=== PATIENT | male | born 1975 | race Caucasian/White ===

== ENCOUNTER 2023-03-18 13:34 | Observation (INO) | payer MEDICAID, SELFPAY ==
[2023-03-18] VITALS (11 sets, daily range): BP systolic 94–113; BP diastolic 61–73; PULSE 80–111; RESP 16–20; TEMP 36.2–36.4; O2SAT 100; BMI 17.7
--- NOTE | ~2023-03-18 | XR_ITS ---
EXAMINATION: XR chest 1V Exam Date/Time: 03/18/2023 16:07 CDT HISTORY: cough, dyspnea Comparison: CT abdomen pelvis, same date. RESULT: Lines, tubes, and devices: None. Lungs and pleura: Clear. Cardiomediastinal silhouette: Normal. Other: No acute osseous or upper abdominal finding. IMPRESSION: No acute cardiopulmonary process. Reviewed, dictated and finalized at location K.
--- NOTE | ~2023-03-18 | NM_ITS ---
Nuclear Medicine Procedure: Perfusion/Ventilation Lung Scan History: Pulmonary embolus. Interpretation: Following inhalation of 17.5 mCi. of Xenon-133, there is symmetrical Xenon entry bila terally with no evidence for retention on the delayed washout images. 4.8 mCi. of Technetium-labeled microspheres were injected intravenously and multiple images obtained in 8 projections revealed normal perfusion to the lungs without any segmental or subsegmental defects . Impression: Low probability perfusion/ventilation lung scan. Reviewed, dictated and finalized at location M. Impression: Low probability perfusion/ventilation lung scan.
--- NOTE | ~2023-03-18 | XR_ITS ---
EXAMINATION: XR barium swallow DATE: 03/20/2023 13:06 INDICATION: Dysphagia. TECHNIQUE: The patient drank thick barium, gas-producing crystals, and thin barium. Fluoroscopy of th e hypopharynx and esophagus was performed. Fluoroscopy exposure time was 0.7 minutes. The total numbe r of images was 268. The dose-area product was 0.5 Gy-cm^2. COMPARISON: Chest CT 03/19/2023 FINDINGS: There is no mass or stricture of the esophagus. Esophageal motility is normal. There is no hiatal hernia. There was no gastroesophageal reflux with provocative maneuvers. IMPRESSION: 1. Normal esophagram. Reviewed, dictated and finalized at location A. IMPRESSION: 1. Normal esophagram.
--- NOTE | ~2023-03-18 | CT_ITS ---
EXAMINATION: CT abdomen pelvis w con DATE: 03/18/2023 16:10 INDICATION: Left abdominal pain TECHNIQUE: Computed tomography (CT) of the abdomen and pelvis was performed with 100 mL Omnipaque-350 intravenous contrast. Automated exposure control and iterative reconstruction technique were employe d. The dose-length product was 196.88 mGy-cm. COMPARISON: None FINDINGS: Lung bases are clear. No pleural effusion. Heart size is normal. Small pericardial effusion a millime ters cyst in the left hepatic lobe. Gallbladder, pancreas and bilateral adrenal glands are normal. Sp lenomegaly measuring 14.8 x 13.7 x 9.6 cm. There is enlargement of the bilateral kidneys with heterog eneous pattern of enhancement with numerous wedge shaped regions of decreased parenchymal enhancement in both kidneys suggestive of pyelonephritis. Diffuse mild wall thickening of the incompletely diste nded bladder with increased mucosal enhancement suspicious for cystitis. No bowel obstruction. There is diffuse mild body wall and mesenteric edema and minimal amount of ascites in the pelvis. Flattenin g of the inferior vena cava suggesting hypovolemia. No abscess or free intraperitoneal gas. No pathol ogically enlarged abdominal or pelvic lymphadenopathy. Mild lumbar levocurvature. IMPRESSION: 1. Cystitis and bilateral pyelonephritis. 2. Nonspecific small pericardial effusion, mesenteric and body wall edema and minimal ascites in the deep pelvis despite flattening of the inferior vena cava consistent with hypovolemia and suggesting p ossibility of sepsis. Reviewed, dictated and finalized at location A. IMPRESSION: 1. Cystitis and bilateral pyelonephritis. 2. Nonspecific small pericardial effusion, mesenteric and body wall edema and m inimal ascites in the deep pelvis despite flattening of the inferior vena cava consistent with hypovolemia and suggesting possibility of sepsis.
--- NOTE | ~2023-03-18 | US_ITS ---
EXAMINATION: US venous doppler [facility] DATE: 03/19/2023 11:45 INDICATION: Shortness of breath TECHNIQUE: [place] scale images without and with compression and Doppler images of the bilateral lower e xtremity veins were obtained. COMPARISON: None FINDINGS: The right common femoral vein, profunda femoral vein, femoral vein, popliteal vein, peroneal trunk, p osterior tibial veins, and greater saphenous vein are patent. The left common femoral vein, profunda femoral vein, femoral vein, popliteal vein, peroneal trunk, po sterior tibial veins, and greater saphenous vein are patent. IMPRESSION: 1. Patent bilateral lower extremity veins. No evidence of deep venous thrombosis. Reviewed, dictated and finalized at location L. IMPRESSION: 1. Patent bilateral lower extremity veins. No evidence of deep venous thrombosi s.
--- NOTE | ~2023-03-18 | CT_ITS ---
EXAMINATION: CTA chest PE protocol DATE: 03/19/2023 11:50 INDICATION: Shortness of breath TECHNIQUE: Computed tomography angiography (CTA) of the chest was performed with 100 mL Omnipaque-350 intravenous contrast timed to evaluate the pulmonary arteries. Coronal maximum intensity projection 3D-reconstructions were created by the technologist. The dose-length product (DLP) was 228.82 mGy-cm. Automated exposure control and iterative reconstruction technique were employed. COMPARISON: None FINDINGS: The pulmonary arteries are well-opacified. No pulmonary embolism is identified. There is e mphysema of the lung apices. No pleural effusion or pneumothorax. The lungs are free of acute opaciti es. No pathologically enlarged thoracic lymph nodes are identified. The heart size is normal. Splenom egaly is noted. IMPRESSION: 1. No pulmonary embolism or acute cardiopulmonary abnormality. Reviewed, dictated and finalized at location L.
--- NOTE | ~2023-03-18 | XR_ITS ---
EXAMINATION: XR barium swallow modified DATE: 03/20/2023 13:03 INDICATION: Dysphagia. TECHNIQUE: The patient was given barium-containing material of multiple consistencies to swallow by camron waller speech pathologist while I performed fluoroscopy. Dose-area product was 0.5 Gy-cm2. 1 minute fluoroscopy time FINDINGS: Oral Stage: Within functional limits Pharyngeal Phase: Within functional limits Cervical/Esophageal Stage: Within functional limits IMPRESSION: Modified esophagram findings as above. Please refer to the speech therapy report [facility]. Reviewed, dictated and finalized at Location A. Reviewed, dictated and finalized at location A. IMPRESSION: Modified esophagram findings as above. Please refer to the speech t herapy report for specific recommendations.
[2023-03-18 14:16] LABS: Hematocrit 39.5 % (42.0-52.0); Hemoglobin 13.2 g/dL (14.0-18.0); Mean Corpuscular HGB Conc 33.4 g/dl (32-36); Mean Corpuscular Hemoglobin 28.3 pg (26-34); Mean Corpuscular Volume 84.6 fl (80-100); Mean Platelet Volume 11.3 fl (7.4-10.4); Platelet Count Result 226 k/mm3 (150-375); Red Blood Count 4.67 M/mm3 (4.6-6.20); Red Cell Distribution Width 13.3 % (11.5-14.5); White Blood Count 12.2 K/mm3 (4.5-10.0)
[2023-03-18 14:26] LABS: Alanine Aminotransferase 49 U/L (6-50); Albumin Level 3.4 g/dL (3.5-5.1); Alkaline Phosphatase 106 U/L (38-126); Anion Gap 12 mmol/L (8-16); Aspartate Amino Transferase 113 U/L (17-59); Bilirubin,Total 0.8 mg/dL (0.2-1.3); Blood Urea Nitrogen 41 mg/dL (9-20); Calcium 8.7 mg/dL (8.4-10.2); Carbon Dioxide 20 mmol/L (22-30); Chloride 96 mmol/L (98-107); Estimated CRCL calculation 36 ml/min; Estimated Glomerular Filt Rate 44; Glucose 109 mg/dL (65-110); Lipase 419 U/L (23-300); Potassium 4.1 mmol/L (3.4-5.0); Sodium 128 mmol/L (137-145)
[2023-03-18 14:39] LABS: Band Neutrophils Percent 10 % (0-6); Lymphocytes Absolute Manual 0.61 K/mm3 (1.1-4.5); Monocytes Absolute Manual 0.48 K/mm3 (0.1-0.90); Monocytes Percent Manual 4 % (3-9); Neutrophils Percent Manual 81 % (46-73); Platelet Estimate Adequate (Adequate); Total Cells Counted 100
[2023-03-18 14:40] LABS: Schistocytes None Seen (NORMAL)
--- NOTE | 2023-03-18 15:53 | ECG_ITS ---
Measurements Intervals [place] Rate: 81 P: 80 NE: 149 QRS: 84 QRSD: 92 T: 68 QT: 373 QTc: 434 Interpretive Statements SINUS RHYTHM BORDERLINE T WAVE ABNORMALITY- ANTERIOR LEADS BASELINE ARTIFACT- I, II, III, AVL BORDERLINE ECG NO PREVIOUS ECG AVAILABLE FOR COMPARISON Electronically Signed On 03-18-2023 20:10:30 CDT by Aureliano Vega D.O.
--- NOTE | 2023-03-18 15:55 | ED.NAVMDI ---
HPI - Nausea/Vomiting/Diarrhea General Chief complaint: Nausea/Vomiting/Diarrhea <Benita Paulino PA-C - Last Filed: 03/18/23 19:28> Stated complaint: nausea, fevers x 1 month <Benita Paulino PA-C - Last Filed: 03/18/23 19:28> Time Seen by Provider: 03/18/23 14:26 <Benita Paulino PA-C - Last Filed: 03/18/23 19:28> History of Present Illness HPI Narrative: 47-year-old male with a history of HIV reports for evaluation for diarrhea, generalized weakness, body aches. Patient states symptoms started a month ago when he began having multiple episodes of diarrhea daily. States he had a 4-day stretch of fevers and laid in bed the entire time, states his high fever at that time was 104. Patient states he was feeling better until a few days ago when he began feeling ill again with generalized body aches, weakness and diarrhea. He states the diarrhea has never stopped. He denies abdominal pain, nausea or vomiting, chest pain. He is reporting shortness of breath and a productive cough with white frothy sputum. He denies hemoptysis, melena or hematochezia. Patient states he did have a 101 temp 2 days ago, but denies fever since. He also reports dysphagia for the past month and a 45 pound weight loss. Patient states he feels 100, however is unable to eat because when he eats, feels like the food does not go down fully and his stomach feels small. He denies odynophagia, sore throat, otalgia, dental pain, hematuria or dysuria, drug or alcohol use. Patient report smoking a couple cigarettes per day. He is not currently taking any antivirals for HIV because he moved here and is waiting to get into a PCP. He has not taken antivirals for 2 months. Denies recent antibiotic use, surgeries or hospitalizations, camping or travel. <Benita Paulino PA-C - Last Filed: 03/18/23 19:28> Related Data Allergies/Adverse reactions: Allergies Allergy/AdvReac Type Severity Reaction Status Date / Time bupropion [From Wellbutrin] Allergy Unknown Verified 03/18/23 17:21 clindamycin Allergy Hives Verified 03/18/23 17:21 Penicillins Allergy Swelling Verified 03/18/23 17:20 of Lip/Tongue/Throat <Benita Paulino PA-C - Last Filed: 03/18/23 19:28> Review of Systems Review of Systems: CONSTITUTIONAL: See HPI EYES: Denies visual changes, redness, or discharge. ENT see HPI CARDIOVASCULAR: Denies chest pain, palpitations, or edema. RESPIRATORY: Denies cough or dyspnea. GASTROINTESTINAL: See HPI GENITOURINARY: Denies dysuria or hematuria. SKIN: Denies rash or itching. MUSCULOSKELETAL: Denies back pain, joint pain, or myalgia. NEUROLOGIC: See HPI PSYCHIATRIC: Denies anxiety or depression. <Benita Paulino PA-C - Last Filed: 03/18/23 19:28> Exam Narrative: GENERAL: Cachectic and ill-appearing. No acute distress HEAD: Normocephalic EYES: PERRLA ENT: Nares clear. Mucous membranes moist. Oropharynx without tonsillar hypertrophy exudate or other lesions. NECK: Supple. No nuchal rigidity. CHEST: No respiratory distress. Clear to auscultation, no adventitious breath sounds. HEART: Regular rate and rhythm. No murmur heard. Normal peripheral pulses. ABDOMEN: Normal active bowel sounds. Abdomen soft with tenderness and guarding in the left lower and left upper quadrants. No overlying skin changes. No rebound or rigidity. No CVA tenderness. EXTREMITIES: Normal range of motion. No edema. Negative Homans. SKIN: Warm, dry, no rash. NEURO: No focal deficits. Alert and oriented x3. PSYCH: Normal mood and affect. <Benita Paulino PA-C - Last Filed: 03/18/23 19:28> Course SUPERVISOR [employer]/PA Physician Supervision I personally evaluated and examined the patient in conjunction with the APC (MANA Paulino) and agree with the assessment, treatment plan and disposition of the patient as recorded by the APC. <Roby Acevedo MD - Last Filed: 03/18/23 20:31> Vital Signs Vital signs: Vital Signs Temperature
[2023-03-18 16:05] LABS: Appearance Urine Turbid (Clear); Bacteria Urine 1+ /hpf; Bilirubin Urine Negative (Negative); Color Urine Yellow (Yellow); Glucose Urine UA Negative (Negative); Hyaline Casts Urine Present /lpf; Ketones Urine Negative (Negative); Leukocyte Esterase Ur 2+ LEU/UL (Negative); Nitrate Urine Negative (Negative); Protein Urine 1+ mg/dL (Negative); RBC Urine 0-2 /hpf (0-2); Specific Grav Ur 1.012 (1.001-1.035); Squamous Epithelial Cell Urine None seen /hpf (Few); Urobilinogen Urine 0.2 mg/dL (<2.0); WBC Clumps Urine Present /HPF; WBC Urine >100 /hpf
[2023-03-18 16:06] LABS: Add Urine Microscopic? YES
[2023-03-18] MEDS: SODIUM CHLORIDE 0.9% IV 1,000 ML 999 ML IV CONT ×3 (16:18→18:55)
[2023-03-18 17:05] LABS: INR 1.1; Prothrombin Time 14.6 Seconds (11.1-14.7)
[2023-03-18 17:06] LABS: Lactic Acid Reflex 1.3 mmol/L (0.7-2.0); Partial Thromboplastin Time 29.9 SECONDS (22.3-36.8); Phosphorus 5.1 mg/dL (2.5-4.5)
[2023-03-18 17:16] LABS: NT Pro B Type Natriuretic Pept 144 pg/mL (19.9-100)
[2023-03-18 17:18] LABS: D Dimer 1.49 ug/mL (<0.48); Troponin I < 0.012 ng/mL (0.000-0.034)
[2023-03-18 17:19] LABS: Strep Group A RT-PCR NOT DETECTED (Negative)
[2023-03-18 17:29] LABS: Influenza A QL RT-PCR Negative (Negative); Influenza B QL RT-PCR Negative (Negative); SARS-CoV-2 RNA PCR Negative (Negative)
--- NOTE | 2023-03-18 19:15 | PC.NURSE ---
Assumed care of pt from DM Cruz at this time.
[2023-03-18] MEDS: VANCOMYCIN 1,250 MG/NS 250 ML BAG 166.67 MG IVPB (19:17)
[2023-03-18 19:44] LABS: Vancomycin Trough < 5.0 ug/mL (10.0-20.0)
--- NOTE | 2023-03-18 20:29 | ADMGEN ---
This patient, Chapito Bernard, was admitted to Medical Room 252-. Patient/family oriented to hospital policies and general routines including ID bracelet, bed and alarms, visiting hours, pain management, procedures, bathroom and other care routines, personal items, smoking policy, room service/diet, and visiting hours. Information on how to activate the Rapid Response Team has been discussed. Patient/Family are encouraged to report perceived risks to care and to ask questions if they do not understand what they are told or what they should do.
--- NOTE | 2023-03-18 20:52 | P.HP_ITS ---
03/18/23 16:00 03/18/23 14:30 03/18/23 20:00 Temperature Pulse Rate 105 H 108 H 80 Respiratory Rate 16 20 16 Blood Pressure 94/66 L 98/71 L 103/63 Pulse Oximetry 100 100 100 Oxygen Delivery 03/18/23 20:13 Temperature 97.6 F Pulse Rate 85 Respiratory Rate 17 Blood Pressure 100/61 Pulse Oximetry 100 Oxygen Delivery Exam Narrative: Patient is laying in bed Const: General: comfortable, no acute distress, well developed, alert, awake, ill appearing chronically, cachectic and other ( bilateral temporal muscle waste) Nutritional Appearance: cachectic Orientation/consciousness: patient oriented x3 HENMT: Head: normal to inspection, normocephalic and atraumatic Ears: hearing grossly normal bilaterally Face/Nose/Sinus: normal facial exam Face and sinus: normal facial exam Eyes: General: appearance normal, both eyes and all related structures Pupils: Equal, round and reactive pupils present EOM: EOMs intact bilaterally Neck: Neck: full ROM, no lymphadenopathy and no JVD Thyroid: thyroid normal Lymphatic: no lymphadenopathy noted Resp: Effort & Inspection: normal respiratory effort and able to speak in complete sentences Auscultation: clear to auscultation bilaterally Cardio: Jugular venous distension: no JVD Rate: regular rate Rhythm: regular rhythm Heart sounds: S1 normal heart sound present and S2 normal heart sound present GI: GI Palp: Yes Soft to palpation and Yes No hepatosplenomegaly present : General: Yes deferred Skin: Rashes: no rashes Wounds: no wounds Neuro: General: patient oriented x3 and CN's II-XI intact bilaterally Cranial nerves: Yes CN's II-XII intact bilaterally and Yes Equal, round and reactive pupils present Cognition (Neuro): normal cognition Speech: normal speech Gait exam (Neuro): Normal gait present Motor exam (neuro): 5/5 motor strength present throughout Extrem: General: normal to inspection, full ROM, no joint enlargement and no pedal edema H&P: Results Labs Labs: Short CBC 03/18/23 Range/Units 14:02 WBC 12.2 H (4.5-10.0) K/mm3 Hgb 13.2 L (14.0-18.0) g/dL Hct 39.5 L (42.0-52.0) % Plt Count 226 (150-375) k/mm3 BMP 03/18/23 14:02 Sodium 128 L Potassium 4.1 Chloride 96 L Carbon Dioxide 20 L BUN 41 H Creatinine 1.70 H Glucose 109 Calcium 8.7 Cardiac Enzymes 03/18/23 Range/Units 16:45 Troponin I < 0.012 (0.000-0.034) ng/mL Liver Function 03/18/23 Range/Units 14:02 Total Bilirubin 0.8 (0.2-1.3) mg/dL AST 113 H (17-59) U/L ALT 49 (6-50) U/L Alkaline Phosphatase 106 (38-126) U/L Albumin 3.4 L (3.5-5.1) g/dL Urine 03/18/23 Range/Units 15:29 Urine Color Yellow (Yellow) Urine Appearance Turbid H (Clear) Urine pH 5.0 (5.0-9.0) Ur Specific [place] 1.012 (1.001-1.035)
--- NOTE | 2023-03-18 20:52 | PM.IMHP ---
H&P: HPI History of Present Illness Date/Time: 03/18/23 20:52 Chief Complaint: fevers Narrative: This is a 47-year-old male with past medical history significant for HIV/ aids, patient not on HAART. used to be on heart however recently relocated to the area and has lost his prior care has been of [facility] for the last 4 months or so comes to the emergency room due to diarrhea, generalized malaise, fevers, chills, cough productive of clear sputum, weight loss of roughly 45 lb over the last month or so, dysphagia however no oral thrush, no odynophagia, he no nausea, no vomiting, patient is currently trying to establish [facility]. Preliminary workup was significant for hemoglobin of 13, bands 10 %, neutrophils 80%, sodium 128, chloride 96 bicarb 20 BUN 40 creatinine 1.7 urinalysis was significant for WBC clumps present. patient tested negative for influenza type A influenza type B COVID-19 A chest x-ray and a CT of abdomen and pelvis were reported as: EXAMINATION: CT abdomen pelvis w con DATE: 03/18/2023 16:10 INDICATION: Left abdominal pain TECHNIQUE: Computed tomography (CT) of the abdomen and pelvis was performed with 100 mL Omnipaque-350 intravenous contrast. Automated exposure control and iterative reconstruction technique were employed. The dose-length product was 196.88 mGy-cm. COMPARISON: None FINDINGS: Lung bases are clear. No pleural effusion. Heart size is normal. Small pericardial effusion a millimeters cyst in the left hepatic lobe. Gallbladder, pancreas and bilateral adrenal glands are normal. Splenomegaly measuring 14.8 x 13.7 x 9.6 cm. There is enlargement of the bilateral kidneys with heterogeneous pattern of enhancement with numerous wedge shaped regions of decreased parenchymal enhancement in both kidneys suggestive of pyelonephritis. Diffuse mild wall thickening of the incompletely distended bladder with increased mucosal enhancement suspicious for cystitis. No bowel obstruction. There is diffuse mild body wall and mesenteric edema and minimal amount of ascites in the pelvis. Flattening of the inferior vena cava suggesting hypovolemia. No abscess or free intraperitoneal gas. No pathologically enlarged abdominal or pelvic lymphadenopathy. Mild lumbar levocurvature. IMPRESSION: 1. Cystitis and bilateral pyelonephritis. 2. Nonspecific small pericardial effusion, mesenteric and body wall edema and minimal ascites in the deep pelvis despite flattening of the inferior vena cava consistent with hypovolemia and suggesting possibility of sepsis. EXAMINATION:? XR chest 1V Exam Date/Time:? 03/18/2023 16:07 CDT HISTORY: cough, dyspnea ? Comparison:? CT abdomen pelvis, same date. RESULT: Lines, tubes, and devices:? None. Lungs and pleura:? Clear. Cardiomediastinal silhouette:? Normal. Other:? No acute osseous or upper abdominal finding. ? IMPRESSION: No acute cardiopulmonary process. ekg Rate 81 [place] 149 QRSd 92 QT 373 QTc 434 --[place]-- P 80 QRS 84 T 68 SINUS RHYTHM BORDERLINE T WAVE ABNORMALITY- ANTERIOR LEADS BASELINE ARTIFACT- I, II, III, AVL BORDERLINE ECG NO PREVIOUS ECG AVAILABLE FOR COMPARISON Electronically Signed On 03-18-2023 20:10:30 CDT by Aureliano Review of Systems Review of Systems: diarrhea, dysphagia, weight loss, fevers, chills, generalized malaise. Intermittent cough productive of clear phlegm. Constitutional: Constitutional: Reports excessive sweating, Reports fever(s), Reports malaise, Reports night sweats, Reports poor appetite, Reports weakness and Reports weight loss Eyes: Eyes: Denies change in vision ENT: Reports dysphagia, Reports dizziness, Denies odynophagia and Denies sore throat Cardiovascular: Cardiovascular: Denies chest pain, Denies leg ulcers, Denies leg edema, Reports lightheadedness, Denies radiating jaw, neck or arm pain, Denies palpitations and Denies dyspnea Respiratory: Respiratory: Denies change in phlegm color, Denies chest congestion, Reports cough, D
[2023-03-18] MEDS: SODIUM CHLORIDE 0.9% IV 1,000 ML 125 ML IV CONT (21:00)
[2023-03-19] VITALS (10 sets, daily range): BP systolic 90–95; BP diastolic 51–53; PULSE 59–99; RESP 16–18; TEMP 36.4–36.6; O2SAT 99–100; BMI 17.7
[2023-03-19] MEDS: traZODone HCL 50 MG TABLET PO (00:42)
[2023-03-19 02:10] LABS: Basophils Percent Auto 0.2 % (0.2-1.2); Eosinophils Percent Auto 0.7 % (0-4.4); Hematocrit 29.7 % (42.0-52.0); Hemoglobin 10.1 g/dL (14.0-18.0); Immature Granulocyte Absolute 0.06 K/mm3 (0.00-0.031); Lymphocytes Absolute Auto 0.32 K/mm3 (0.9-3.2); Lymphocytes Percent Auto 5.2 % (18.3-44.2); Mean Corpuscular Hemoglobin 28.7 pg (26-34); Mean Corpuscular Volume 84.4 fl (80-100); Monocytes Absolute Auto 0.4 K/mm3 (0.1-0.6); Monocytes Percent Auto 6.2 % (2.6-8.5); Neutrophils Absolute Auto 5.3 K/mm3 (1.3-6.7); Neutrophils Percent Auto 86.7 % (45.5-73.1); Platelet Count Result 174 k/mm3 (150-375); Red Blood Count 3.52 M/mm3 (4.6-6.20); Red Cell Distribution Width 13.6 % (11.5-14.5); White Blood Count 6.1 K/mm3 (4.5-10.0)
[2023-03-19 02:22] LABS: Anion Gap 7 mmol/L (8-16); Blood Urea Nitrogen 35 mg/dL (9-20); Carbon Dioxide 17 mmol/L (22-30); Chloride 103 mmol/L (98-107); Estimated CRCL calculation 46 ml/min; Estimated Glomerular Filt Rate 55; Glucose 99 mg/dL (65-110); Lactic Acid Reflex 0.7 mmol/L (0.7-2.0); Magnesium 2.1 mg/dL (1.6-2.3); Potassium 3.7 mmol/L (3.4-5.0); Sodium 127 mmol/L (137-145)
[2023-03-19 04:53] LABS: Toxigenic C. Diff NEGATIVE (NEGATIVE)
[2023-03-19] MEDS: SODIUM CHLORIDE 0.9% IV 1,000 ML 125 ML IV CONT ×2 (05:07→17:28)
[2023-03-19] MEDS: SULFAMETHOXAZOLE/TRIMETHOPRIM 800/160 MG DS TABLET 1 TAB PO (09:18)
[2023-03-19] MEDS: ACETAMINOPHEN 325 MG TABLET 650 MG PO (09:22)
--- NOTE | 2023-03-19 11:57 | PM.IMPN ---
Progress Note: A&P Assessment and Plan (1) Sepsis: Qualifiers: Acute renal failure type: unspecified Sepsis acute organ dysfunction status: with acute organ dysfunction Sepsis type: sepsis due to unspecified organism Severe sepsis acute organ dysfunction type: acute renal failure Severe sepsis shock status: without septic shock Qualified Code(s): A41.9 - Sepsis, unspecified organism; R65.20 - Severe sepsis without septic shock; N17.9 - Acute kidney failure, unspecified Code(s): A41.9 - Sepsis, unspecified organism Status: Acute Assessment and Plan: Patient still appears mildly or borderline hypotensive after aggressive bolus and IV antibiotics, no septic shock identified at this time. (2) Pyelonephritis: Code(s): N12 - Tubulo-interstitial nephritis, not specified as acute or chronic Status: Acute Assessment and Plan: Urinary tract infection suggested by UA as well as radiographic findings of bilateral pyelonephritis. Nonobstructing. Escalated antibiotics to Bactrim DS 2 tabs b.i.d. after discussion with ID Pharmacist. (3) TOBI (acute kidney injury): Code(s): N17.9 - Acute kidney failure, unspecified Status: Acute Assessment and Plan: Suspected to be related to dehydration and sepsis (4) HIV disease: Code(s): B20 - Human immunodeficiency virus [HIV] disease Status: Acute Assessment and Plan: not currently receiving treatment CD4 count has been collected waiting results (5) Dysphagia: Code(s): R13.10 - Dysphagia, unspecified Status: Acute Assessment and Plan: poorly described difficulty swallowing food per patient. GI was consulted and ordered barium swallow, possible EGD (6) D-dimer, elevated: Code(s): R79.89 - Other specified abnormal findings of blood chemistry Status: Acute Assessment and Plan: D-dimer elevated the ER workup, V/Q scan negative. CTA also negative, bilateral lower extremity Dopplers negative (7) Diarrhea: Qualifiers: Diarrhea type: unspecified type Qualified Code(s): R19.7 - Diarrhea, unspecified Code(s): R19.7 - Diarrhea, unspecified Status: Acute Assessment and Plan: chronic and ongoing stool testing negative for C diff and other tests are still pending (8) Hyponatremia: Code(s): E87.1 - Hypo-osmolality and hyponatremia Status: Acute Assessment and Plan: mild stable, continue to monitor daily labs Time Spent With Patient Time with patient: Greater than 35 minutes Subjective Date/time seen: 03/19/23 11:57 Interval history: Patient was admitted due to pyelonephritis on imaging with UA highly suggestive UTI. He was started on ceftriaxone and vancomycin due to HIV positive status not well controlled and not currently receiving treatment. Patient is a very poor historian and seemed to insinuated that it was because he was crying for the last 24 hours that he knew he needed to come to the hospital. Patient complained of pain all over. Now he states the pain is still present but in the next sentence when asked where he has pain, he states he has no pain anywhere. Patient reports that he has had multiple episodes of diarrhea ongoing for a long period of time. I asked if patient needed anything else and he said not for you, but for the nurse and subsequently pushed the call light and complained that his lips were chapped. Review of Systems Review of Systems: poor historian Exam Narrative: GENERAL: generally unwell appearing, thin and emaciated HEENT: Pupils are equally round and briskly reactive to light. Extraocular muscles are intact. Oral mucous membranes no thrush NECK: The patient has no noted JVD. No adenopathy is appreciated. CHEST/LUNGS: Lungs are clear bilaterally without rhonchi, rales, or wheezes. There is no subcutaneous air appreciated. HEART: The patient has a regular rate and rhythm. No murmu
--- NOTE | 2023-03-19 12:29 | WPDGICN ---
Assessment and Plan Assessment and plan (1) Dysphagia: Code(s): R13.10 - Dysphagia, unspecified Status: Acute Assessment and Plan: Dysphagia is poorly described by the patient. He has no pain to suggest 0dynophagia nor Magaly infection. Plan for barium swallow initially. He may benefit from a modified barium swallow. EGD will be deferred but could be reconsider later today. (2) Diarrhea: Qualifiers: Diarrhea type: unspecified type Qualified Code(s): R19.7 - Diarrhea, unspecified Code(s): R19.7 - Diarrhea, unspecified Status: Acute Assessment and Plan: Patient has diarrhea that is ongoing. May be related to his established pyelonephritis. May also be related to his immunocompromised status with HIV infection. Plan for initial stool consultation and broad-spectrum antibiotics subsequently. (3) Pyelonephritis: Code(s): N12 - Tubulo-interstitial nephritis, not specified as acute or chronic Status: Acute Assessment and Plan: Pyelonephritis suggested by CT scan imaging. Patient will require broad-spectrum antibiotics for this as well. Perhaps even urology follow-up. (4) HIV disease: Code(s): B20 - Human immunodeficiency virus [HIV] disease Status: Acute Assessment and Plan: Given patient's significant HIV disease with wasting would strongly encourage patient be established with local HIV Clinic. GI Consult Note Consult date/time: 03/19/23 12:29 Reason for consult: Dysphagia HPI: Chapito Bernard is a 47 year old male I am asked to see because of complaints of dysphagia . Patient is a very poor historian. Apparently has a history of HIV diagnosis. He was diagnosed and treated elsewhere. Recently moved to this area. He does not have an established physician. He has not been receiving treatment for at least several weeks. Apparently has had diarrhea for more than a month. He may have had fevers as well. He tells me that he only had difficulty swallowing chicken 1 day prior to admission to the hospital. The specifics of this are difficult to elicit from the patient. He denies any pain with swallowing. He has had no bleeding. Patient has had diarrhea the quantity is somewhat difficult to specify. He does complain of abdominal discomfort. But he states it is intermittent not present at the current time. Review of Systems Review of Systems: Review of systems noncontributory. ROS unobtainable: Yes unobtainable due to mental status PMFSH Family History Family History (Updated 03/18/23 @ 20:54 by Roula Blakely RN) Other Unknown family medical history Social History Social History Smoking status: Former smoker Alcohol intake: never Substance use: current Substance use type: marijuana Other substance usage details: FEW TIMES A WEEK Lack of Transportation: No Lack of Food: Never True Current Housing: I Have Housing Concerned About Future Housing: No Difficulty Paying Gas/Electric Bills: YES Difficulty Paying for Meds: YES Currently Unemployed: YES Education: High School Diploma/GED Difficulty w/ Childcare or Family Care: No Spiritual care concerns: No Meds Home Medications and Allergies Home Medications Medication Instructions Recorded Confirmed Type acetaminophen 325 mg capsule 650 mg PO Q4H PRN Pain (Scale 03/18/23 03/18/23 History (Tylenol) Score 1-3) Allergies Allergy/AdvReac Type Severity Reaction Status Date / Time bupropion [From Wellbutrin] Allergy Unknown Verified 03/18/23 17:21 clindamycin Allergy Hives Verified 03/18/23 17:21 Penicillins Allergy Swelling Verified 03/18/23 17:20 of Lip/Tongue/Throat Vital Signs Vital Signs - 24 hr 03/18/23 13:52 03/18/23 15:30 03/18/23 18:37 Temperature 97.2 F L Pulse Rate 111 H 106 H 87 Respiratory Rate 20 20 18 Blood Pre
--- NOTE | 2023-03-19 15:09 | PC.NURSE ---
On 03/19/23, the student, [Lisa Carpio], provided care and completed [facility] documentation on this patient. I have reviewed the student's documentation and agree with the findings.
[2023-03-19] MEDS: LACTATED RINGERS 1,000 ML 999 ML IV CONT (15:54)
[2023-03-19] MEDS: SULFAMETHOXAZOLE/TRIMETHOPRIM 800/160 MG DS TABLET 2 TAB PO (20:21)
[2023-03-20] VITALS: PULSE 66
[2023-03-20] MEDS: SODIUM CHLORIDE 0.9% IV 1,000 ML 125 ML IV CONT ×2 (01:12→08:35)
[2023-03-20 04:00] VITALS: PULSE 77
[2023-03-20 05:27] LABS: Basophils Percent Auto 0.2 % (0.2-1.2); Eosinophils Percent Auto 0.8 % (0-4.4); Hematocrit 27.4 % (42.0-52.0); Hemoglobin 9.2 g/dL (14.0-18.0); Immature Granulocyte Absolute 0.05 K/mm3 (0.00-0.031); Lymphocytes Absolute Auto 0.34 K/mm3 (0.9-3.2); Lymphocytes Percent Auto 6.5 % (18.3-44.2); Mean Corpuscular HGB Conc 33.6 g/dl (32-36); Mean Corpuscular Hemoglobin 28.4 pg (26-34); Mean Corpuscular Volume 84.6 fl (80-100); Monocytes Absolute Auto 0.3 K/mm3 (0.1-0.6); Monocytes Percent Auto 6.3 % (2.6-8.5); Neutrophils Absolute Auto 4.5 K/mm3 (1.3-6.7); Neutrophils Percent Auto 85.2 % (45.5-73.1); Platelet Count Result 174 k/mm3 (150-375); Red Blood Count 3.24 M/mm3 (4.6-6.20); Red Cell Distribution Width 13.6 % (11.5-14.5); White Blood Count 5.2 K/mm3 (4.5-10.0)
[2023-03-20 05:46] LABS: Alanine Aminotransferase 29 U/L (6-50); Albumin Level 2.1 g/dL (3.5-5.1); Alkaline Phosphatase 69 U/L (38-126); Anion Gap 7 mmol/L (8-16); Aspartate Amino Transferase 53 U/L (17-59); Bilirubin,Total 0.3 mg/dL (0.2-1.3); Blood Urea Nitrogen 20 mg/dL (9-20); Calcium 6.8 mg/dL (8.4-10.2); Carbon Dioxide 15 mmol/L (22-30); Chloride 111 mmol/L (98-107); Estimated CRCL calculation 50 ml/min; Estimated Glomerular Filt Rate 60; Glucose 88 mg/dL (65-110); Potassium 3.4 mmol/L (3.4-5.0); Sodium 133 mmol/L (137-145)
[2023-03-20 06:44] VITALS: BP 92/57; PULSE 72; RESP 16; TEMP 36.4; O2SAT 95
--- NOTE | 2023-03-20 07:06 | P.PNIM_ITS ---
Progress Note: A&P Assessment and Plan (1) Sepsis: Qualifiers: Acute renal failure type: unspecified Sepsis acute organ dysfunction status: with acute organ dysfunction Sepsis type: sepsis due to unspecified or ganism Severe sepsis acute organ dysfunction type: acute renal failure Severe sepsis shock status: without septic shock Qualified Code(s): A41.9 - Sepsis, unspecified organism; R65.20 - Severe sepsis without septic shock; N17.9 - Acute kidney failure, unspecified Code(s): A41.9 - Sepsis, unspecified organism Status: Acute Assessment and Plan: * Presented to the ED with complaints of a fever, diarrhea, malaise, chills, cough, and weight loss * Meets SIRS criteria with tachycardia, leukocytosis, hypotension, bandemia and source of infection * Source of infection pyelonephritis, UTI * Rehydrated in the ED * Normal Saline continued * Blood Cultures NGTD * Urine culture pending * Trend labs and vital signs (2) Pyelonephritis: Code(s): N12 - Tubulo-interstitial nephritis, not specified as acute or chronic Status: Acute Assessment and Plan: * CT of the abdomen and pelvis shows Pyelonephritis and cystitis * Causing sepsis * WBC 12.2 at time of admission, currently 5.2 * IV ceftriaxone and vancomycin converted to Bactrim * Await urine cultures * Continue to trend labs and vital signs (3) TOBI (acute kidney injury): Code(s): N17.9 - Acute kidney failure, unspecified Status: Acute Assessment and Plan: * Creatinine elevated at 1.70 at admission * Currently 1.30 * Unknown baseline * Secondary to dehydration and UTI * Continue IV fluids for now * Trend labs (4) HIV disease: Code(s): B20 - Human immunodeficiency virus [HIV] disease Status: Acute Assessment and Plan: * Known history of HIV * Was on Biktarvy * No PCP * Labs pending at this time * Will try to set patient up with PCP and infectious disease outpatient (5) Dysphagia: Qualifiers: Dysphagia type: unspecified Qualified Code(s): R13.10 - Dysphagia, unspecified Code(s): R13.10 - Dysphagia, unspecified Status: Acute Assessment and Plan: * Subjective choking at time of admission * Modified barium swallow ordered * ST consulted * Await further recommendations (6) D-dimer, elevated: Code(s): R79.89 - Other specified abnormal findings of blood chemistry Status: Acute Assessment and Plan: * D-dimer elevated * V/Q scan Low probability of PE * CTA No PE * bilateral lower extremity Doppler no notable DVT (7) Diarrhea: Qualifiers: Diarrhea type: unspecified type Qualified Code(s): R19.7 - Diarrhea, unspecified Code(s): R19.7 - Diarrhea, unspecified Status: Acute Assessment and Plan: * chronic and ongoing stool testing negative for C diff * Stool cultures pending * Most likely related to HIV * Continue to hydrate (8) Hyponatremia: Code(s): E87.1 - Hypo-osmolality and hyponatremia Status: Acute Assessment and Plan: * Na noted 127 * Currently trending up at 133 * Continue trend labs * Continue NACL for now * Stable (9) Anemia: Code(s): D64.9 - Anemia, unspecified
--- NOTE | 2023-03-20 07:06 | PM.IMPN ---
Progress Note: A&P Assessment and Plan (1) Sepsis: Qualifiers: Acute renal failure type: unspecified Sepsis acute organ dysfunction status: with acute organ dysfunction Sepsis type: sepsis due to unspecified organism Severe sepsis acute organ dysfunction type: acute renal failure Severe sepsis shock status: without septic shock Qualified Code(s): A41.9 - Sepsis, unspecified organism; R65.20 - Severe sepsis without septic shock; N17.9 - Acute kidney failure, unspecified Code(s): A41.9 - Sepsis, unspecified organism Status: Acute Assessment and Plan: Presented to the ED with complaints of a fever, diarrhea, malaise, chills, cough, and weight loss Meets SIRS criteria with tachycardia, leukocytosis, hypotension, bandemia and source of infection Source of infection pyelonephritis, UTI Rehydrated in the ED Normal Saline continued Blood Cultures NGTD Urine culture pending Trend labs and vital signs (2) Pyelonephritis: Code(s): N12 - Tubulo-interstitial nephritis, not specified as acute or chronic Status: Acute Assessment and Plan: CT of the abdomen and pelvis shows Pyelonephritis and cystitis Causing sepsis WBC 12.2 at time of admission, currently 5.2 IV ceftriaxone and vancomycin converted to Bactrim Await urine cultures Continue to trend labs and vital signs (3) TOBI (acute kidney injury): Code(s): N17.9 - Acute kidney failure, unspecified Status: Acute Assessment and Plan: Creatinine elevated at 1.70 at admission Currently 1.30 Unknown baseline Secondary to dehydration and UTI Continue IV fluids for now Trend labs (4) HIV disease: Code(s): B20 - Human immunodeficiency virus [HIV] disease Status: Acute Assessment and Plan: Known history of HIV Was on Biktarvy No PCP Labs pending at this time Will try to set patient up with PCP and infectious disease outpatient (5) Dysphagia: Qualifiers: Dysphagia type: unspecified Qualified Code(s): R13.10 - Dysphagia, unspecified Code(s): R13.10 - Dysphagia, unspecified Status: Acute Assessment and Plan: Subjective choking at time of admission Modified barium swallow ordered ST consulted Await further recommendations (6) D-dimer, elevated: Code(s): R79.89 - Other specified abnormal findings of blood chemistry Status: Acute Assessment and Plan: D-dimer elevated V/Q scan Low probability of PE CTA No PE bilateral lower extremity Doppler no notable DVT (7) Diarrhea: Qualifiers: Diarrhea type: unspecified type Qualified Code(s): R19.7 - Diarrhea, unspecified Code(s): R19.7 - Diarrhea, unspecified Status: Acute Assessment and Plan: chronic and ongoing stool testing negative for C diff Stool cultures pending Most likely related to HIV Continue to hydrate (8) Hyponatremia: Code(s): E87.1 - Hypo-osmolality and hyponatremia Status: Acute Assessment and Plan: Na noted 127 Currently trending up at 133 Continue trend labs Continue NACL for now Stable (9) Anemia: Code(s): D64.9 - Anemia, unspecified Status: Acute Assessment and Plan: Current H/H 9.2/27.4 Anemia labs ordered No source of bleeding Normal at admission 13.2/39.5 Could be related to dilution Continue to trend labs Transfuse if Hgb <7.0 Time Spent With Patient Time: 56 minutes Time with patient: Greater than 35 minutes Subjective Date/time seen: 03/20/23 07:06 Interval history: 03/20/23 03/19/23? 11:57 Patient was admitted due to pyelonephritis on imaging with UA highly suggestive UTI. He was started on ceftriaxone and vancomycin due to HIV positive status not well controlled and not currently receiving treatment.
[2023-03-20 07:20] LABS: Lipase 373 U/L (23-300)
[2023-03-20 07:59] LABS: Iron 27 ug/dL (49-181)
[2023-03-20 08:00] VITALS: PULSE 75
[2023-03-20 08:10] LABS: Percent Iron Saturation 15 % (20-50); Transferrin < 80 mg/dL (206-381)
[2023-03-20] MEDS: ENOXAPARIN 40 MG/0.4 ML SYRINGE SUB-Q (08:35)
[2023-03-20] MEDS: SULFAMETHOXAZOLE/TRIMETHOPRIM 800/160 MG DS TABLET 2 TAB PO (08:35)
[2023-03-20 09:07] LABS: Folic Acid 7.4 ng/mL (2.76->20)
[2023-03-20 09:22] LABS: Free T4 Free Thyroxine Reflex 0.99 ng/dL (0.78-2.19)
--- NOTE | 2023-03-20 09:45 | PM.DS ---
DS: Admitting Diagnosis Discharge Date 03/20/23 0945 Admitting Diagnosis UTI, pyelonephritis DS: Discharge Diagnosis Discharge Diagnosis (1) Sepsis: Qualifiers: Acute renal failure type: unspecified Sepsis acute organ dysfunction status: with acute organ dysfunction Sepsis type: sepsis due to unspecified organism Severe sepsis acute organ dysfunction type: acute renal failure Severe sepsis shock status: without septic shock Qualified Code(s): A41.9 - Sepsis, unspecified organism; R65.20 - Severe sepsis without septic shock; N17.9 - Acute kidney failure, unspecified Code(s): A41.9 - Sepsis, unspecified organism Status: Acute Assessment and Plan: Presented to the ED with complaints of a fever, diarrhea, malaise, chills, cough, and weight loss Meets SIRS criteria with tachycardia, leukocytosis, hypotension, bandemia and source of infection Source of infection pyelonephritis, UTI Rehydrated in the ED Normal Saline continued Blood Cultures NGTD Urine culture pending Trend labs and vital signs (2) Pyelonephritis: Code(s): N12 - Tubulo-interstitial nephritis, not specified as acute or chronic Status: Acute Assessment and Plan: CT of the abdomen and pelvis shows Pyelonephritis and cystitis Causing sepsis WBC 12.2 at time of admission, currently 5.2 IV ceftriaxone and vancomycin converted to Bactrim Await urine cultures Continue to trend labs and vital signs (3) TOBI (acute kidney injury): Code(s): N17.9 - Acute kidney failure, unspecified Status: Acute Assessment and Plan: Creatinine elevated at 1.70 at admission Currently 1.30 Unknown baseline Secondary to dehydration and UTI Continue IV fluids for now Trend labs (4) HIV disease: Code(s): B20 - Human immunodeficiency virus [HIV] disease Status: Acute Assessment and Plan: Known history of HIV Was on Biktarvy No PCP Labs pending at this time Will try to set patient up with PCP and infectious disease outpatient (5) Dysphagia: Qualifiers: Dysphagia type: unspecified Qualified Code(s): R13.10 - Dysphagia, unspecified Code(s): R13.10 - Dysphagia, unspecified Status: Acute Assessment and Plan: Subjective choking at time of admission Modified barium swallow ordered ST consulted Await further recommendations (6) D-dimer, elevated: Code(s): R79.89 - Other specified abnormal findings of blood chemistry Status: Acute Assessment and Plan: D-dimer elevated V/Q scan Low probability of PE CTA No PE bilateral lower extremity Doppler no notable DVT (7) Diarrhea: Qualifiers: Diarrhea type: unspecified type Qualified Code(s): R19.7 - Diarrhea, unspecified Code(s): R19.7 - Diarrhea, unspecified Status: Acute Assessment and Plan: chronic and ongoing stool testing negative for C diff Stool cultures pending Most likely related to HIV Continue to hydrate (8) Hyponatremia: Code(s): E87.1 - Hypo-osmolality and hyponatremia Status: Acute Assessment and Plan: Na noted 127 Currently trending up at 133 Continue trend labs Continue NACL for now Stable (9) Anemia: Code(s): D64.9 - Anemia, unspecified Status: Acute Assessment and Plan: Current H/H 9.2/27.4 Anemia labs ordered No source of bleeding Normal at admission 13.2/39.5 Could be related to dilution Continue to trend labs Transfuse if Hgb <7.0 (10) Campylobacter diarrhea: Code(s): A04.5 - Campylobacter enteritis Status: Acute Assessment and Plan: Stool cultures Campylobacter did grow in the stool Azithromycin 1gm x 1 ID pharm on board DS: Summary Hospital Course Hospital Course: Patient is a 6
--- NOTE | 2023-03-20 09:45 | P.DS_ITS ---
DS: Admitting Diagnosis Discharge Date 03/20/23 0945 Admitting Diagnosis UTI, pyelonephritis DS: Discharge Diagnosis Discharge Diagnosis (1) Sepsis: Qualifiers: Acute renal failure type: unspecified Sepsis acute organ dysfunction status: with acute organ dysfunction Sepsis type: sepsis due to unspecified organism Severe sepsis acute organ dysfunction type: acute renal failure Severe sepsis shock status: without septic shock Qualified Code(s): A41.9 - Sepsis, unspecified organism; R65.20 - Severe sepsis without septic shock; N17.9 - Acute kidney failure, unspecified Code(s): A41.9 - Sepsis, unspecified organism Status: Acute Assessment and Plan: * Presented to the ED with complaints of a fever, diarrhea, malaise, chills, cough, and weight loss * Meets SIRS criteria with tachycardia, leukocytosis, hypotension, bandemia and source of infection * Source of infection pyelonephritis, UTI * Rehydrated in the ED * Normal Saline continued * Blood Cultures NGTD * Urine culture pending * Trend labs and vital signs (2) Pyelonephritis: Code(s): N12 - Tubulo-interstitial nephritis, not specified as acute or chronic Status: Acute Assessment and Plan: * CT of the abdomen and pelvis shows Pyelonephritis and cystitis * Causing sepsis * WBC 12.2 at time of admission, currently 5.2 * IV ceftriaxone and vancomycin converted to Bactrim * Await urine cultures * Continue to trend labs and vital signs (3) TOBI (acute kidney injury): Code(s): N17.9 - Acute kidney failure, unspecified Status: Acute Assessment and Plan: * Creatinine elevated at 1.70 at admission * Currently 1.30 * Unknown baseline * Secondary to dehydration and UTI * Continue IV fluids for now * Trend labs (4) HIV disease: Code(s): B20 - Human immunodeficiency virus [HIV] disease Status: Acute Assessment and Plan: * Known history of HIV * Was on Biktarvy * No PCP * Labs pending at this time * Will try to set patient up with PCP and infectious disease outpatient (5) Dysphagia: Qualifiers: Dysphagia type: unspecified Qualified Code(s): R13.10 - Dysphagia, unspecified Code(s): R13.10 - Dysphagia, unspecified Status: Acute Assessment and Plan: * Subjective choking at time of admission * Modified barium swallow ordered * ST consulted * Await further recommendations (6) D-dimer, elevated: Code(s): R79.89 - Other specified abnormal findings of blood chemistry Status: Acute Assessment and Plan: * D-dimer elevated * V/Q scan Low probability of PE * CTA No PE * bilateral lower extremity Doppler no notable DVT (7) Diarrhea: Qualifiers: Diarrhea type: unspecified type Qualified Code(s): R19.7 - Diarrhea, unspecified Code(s): R19.7 - Diarrhea, unspecified Status: Acute Assessment and Plan: * chronic and ongoing stool testing negative for C diff * Stool cultures pending * Most likely related to HIV * Continue to hydrate (8) Hyponatremia: Code(s): E87.1 - Hypo-osmolality and hyponatremia Status: Acute Assessment and Plan: * Na noted 127 * Currently trending up at 133 * Continue trend labs * Continue NACL for now *
[2023-03-20 10:12] LABS: Total Triiodothyronine (T3) 0.55 NG/ML (0.97-1.69)
[2023-03-20] MEDS: AZITHROMYCIN 250 MG TABLET 1000 MG PO (15:58)
[2023-03-22 14:31] LABS: Absolute CD4 Count 30 cells/uL (490-1740); Lymphocytes, Absolute 162 cells/uL (850-3900); Percent CD4 Cells 19 % (30-61)
== END 2023-03-20 16:00 | disposition home or self-care (01) ==
LOC: ANHED 18:32 → ANH2MED 20:02
PROVIDERS: Emergency Medicine; Nurse Practitioner; Admitting Provider Internal Medicine; Emergency Provider Physician Assistant; Visit Provider Chiropractor
DX: A41.9 Sepsis, unspecified organism (principal); R65.20 Severe sepsis without septic shock; N17.9 Acute kidney failure, unspecified; N12 Tubulo-interstitial nephritis, not specified as acute or chronic; B20 Human immunodeficiency virus [HIV] disease; N30.90 Cystitis, unspecified without hematuria; B96.20 Unspecified Escherichia coli [E. coli] as the cause of diseases classified elsewhere; I31.39 Other pericardial effusion (noninflammatory); A04.5 Campylobacter enteritis; E87.1 Hypo-osmolality and hyponatremia; R06.02 Shortness of breath; D64.9 Anemia, unspecified; R05.9 Cough, unspecified; I95.9 Hypotension, unspecified; D72.829 Elevated white blood cell count, unspecified; R79.1 Abnormal coagulation profile; R79.89 Other specified abnormal findings of blood chemistry; R63.4 Abnormal weight loss; R63.0 Anorexia; Z68.1 Body mass index [BMI] 19.9 or less, adult; F17.210 Nicotine dependence, cigarettes, uncomplicated; F12.90 Cannabis use, unspecified, uncomplicated; Z86.711 Personal history of pulmonary embolism; Z79.1 Long term (current) use of non-steroidal anti-inflammatories (NSAID)
CPT/HCPCS: 36415; 71045; 71275; 74177; 74220; 78582; 80048; 80053; 80202; 81001; 82607; 82728; 82746; 83540; 83550; 83605; 83690; 83735; 83880; 84100; 84439; 84443; 84466; 84480; 84484; 85025; 85380; 85610; 85730; 86361; 87040; 87045; 87077; 87086; 87177; 87186; 87209; 87427; 87449; 87493; 87636; 87651; 89055; 92611; 93005; 93970; 96360; 96361; 96365; 96367; 96372; 99285; A9270; A9540; A9558; G0378; J0696; J1650; J3370; J7030; J7120; Q9967